=== PATIENT | male | born 1995 | race Caucasian/White ===

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

== ENCOUNTER 2017-01-28 19:32 | Emergency (ER) | payer BC, OTHER ==
[~2017-01-28] VITALS: Ht 167.6 cm; Wt 70.0 kg
[~2017-01-28 19:32] MED LIST changes: +FAMO-96 PO; +HYDR-906 PO; +METO10TA92 PO; +SERT100T PO
[2017-01-28 19:36] VITALS: Ht 167.6 cm; Wt 70.0 kg
--- NOTE | 2017-01-28 20:27 | ERD ---
ER Documentation Chief Complaint Chief Complaint bib self, cc: rectal bleeding and discomfort from hemmorhoids, hx of HPI 21-year-old male presents emergency department for rectal bleeding. Stated that this happened earlier today while he was moving his bowel. Reports constipation but able to move his bowel today with mild bleeding due to irritation. Denies headache, dizziness, blurry vision, neck pain, shoulder pain, chest pain , back pain, abdominal pain, nausea, vomiting, diarrhea, loss of bowel bladder control, urinary symptoms, recent long travel, recent travel, recent exposure to any illness, recent antibiotic use in the last 3 months, fever, chills, difficulty walking, numbness or tingling sensation. No known drug allergies. Past medical history of hemorrhoids, depression. Surgical history of appendectomy. Medication: Zoloft. Social: Student. Denies smoking, use of alcoholic beverages, use of illegal drugs. ROS All systems reviewed and are negative except as per history of present illness. Medications Home Meds Active Scripts Hydrocortisone Acetate (Anusol-Hc) 25 Mg Supp.rect, 1 SUPP DC BID Y for HEMORROID PAIN/ITCHING, #12 SUPP.RECT Prov:RADHA MERIDA 01/28/17 Hydrocodone/Acetaminophen ([place] 5-325 Tablet) 1 Each Tablet, 1 EACH PO TID for SEVERE PAIN LEVEL 7-10, #20 TAB Prov:NIKKIE CURRY MD 12/28/16 Famotidine* (Pepcid*) 20 Mg Tablet, 20 MG PO BID, #60 TAB Prov:NIKKIE CURRY MD 12/28/16 Metoclopramide* (Reglan*) 10 Mg Tablet, 10 MG PO Q6H Y for NAUSEA AND OR VOMITING, #30 TAB Prov:NIKKIE CURRY MD 12/28/16 Reported Medications Sertraline Hcl* (Zoloft*) 100 Mg Tablet, 100 MG PO DAILY, #30 TAB 12/25/16 [vicodin] No Conflict Check 01/29/13 Allergies Allergies: Coded Allergies: No Known Allergy (Unverified , 01/29/13) PMhx/Soc History of Surgery: No Anesthesia Reaction: No Hx Neurological Disorder: No Hx Respiratory Disorders: No Hx Cardiac Disorders: No Hx Psychiatric Problems: Yes (Depression) Hx Miscellaneous Medical Probl: No Hx Alcohol Use: No Hx Substance Use: No Hx Tobacco Use: No Physical Exam Vitals Vital Signs Date Time Temp Pulse Resp B/P Pulse Ox O2 Delivery O2 Flow Rate FiO2 01/28/17 19:36 98.6 85 18 139/82 100 Physical Exam Const: [] Head: Atraumatic Eyes: Normal Conjunctiva ENT: Normal External Ears, Nose and Mouth. Neck: Full range of motion..~ No meningismus. Resp: Clear to auscultation bilaterally Cardio: Regular rate and rhythm, no murmurs Abd: Soft, non tender, non distended. Normal bowel sounds. There is no right upper/right lower/epigastric/left upper/left lower abdominal tenderness and likely the patient.. No CVA tenderness. Able to jump 10 times without developing abdominal pain. Rectal: No external hemorrhoids. No internal hemorrhoids. No bleeding. No discharge. Skin: No petechiae or rashes Back: No midline or flank tenderness Ext: No cyanosis, or edema Neur: Awake and alert Psych: Normal Mood and Affect Procedures/MDM 21-year-old male presents emergency department for rectal bleeding. Stated that this happened earlier today while he was moving his bowel. Reports constipation but able to move his bowel today with mild bleeding due to irritation. Denies headache, dizziness, blurry vision, neck pain, shoulder pain, chest pain , back pain, abdominal pain, nausea, vomiting, diarrhea, loss of bowel bladder control, urinary symptoms, recent long travel, recent travel, recent exposure to any illness, recent antibiotic use in the last 3 months, fever, chills, difficulty walking, numbness or tingling sensation. No known drug allergies. Past medical history of hemorrhoids, depression. Surgical history of appendectomy. Medication: Zoloft. Social: Student. Denies smoking, use of alcoholic beverages, use of illegal drugs. Physical exam: There is no right upper/right lower/epigastric/left upper/left lower abdominal tenderness and likely the patient.. No CVA tenderness. Able to jump 10 times without developing abdominal pain. Rectal: No external hemorrhoids. No internal hemorrhoids. No bleeding. No discharge. Disease process was explained to the patient and family member. They both verbalized agreement and agreed with the plan of care. Differential diagnosis: Anal fissure versus ulcerative colitis versus Crohn's disease versus anal fistula versus constipation Final diagnosis: Constipation Reevaluation: Denies headache, dizziness, neck pain, shoulder pain, chest pain, back pain, abdominal pain. There is no right upper/right lower/epigastric/left upper/lower abdominal tenderness and likely palpation. Negative on Rovsing's sign. Negative [place] sign. Negative psoas sign. No CVA tenderness. Able to jump 10 times without developing abdominal pain. Denies active bleeding. Prescription: Colace. Follow-up with PCP in the next 24-48 hours. Come back to emergency department for any new symptoms or any worsening symptoms. All questions and concerns are answered. Patient and family member verbalized understanding and agreed with the plan of care. Hemodynamically stable on discharge. Departure Diagnosis: Primary Impression: Constipation Condition: Stable Additional Instructions: Follow-up with PCP in the next 24-48 hours. Come back to emergency department for any new symptoms or any worsening symptoms. All questions and concerns are answered. Patient and family member verbalized understanding and agreed with the plan of care. RADHA MERIDA Jan 28, 2017 20:27
[2017-01-28] MEDS ORDERED: HYDR25SU23 PR (20:28)
== END 2017-01-28 20:37 | disposition home or self-care (01) ==
LOC: FTE 19:32
DX: K59.00 Constipation, unspecified (principal)
CPT/HCPCS: 99284